=== PATIENT | female | born 2000 | race Caucasian/White ===

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

== ENCOUNTER 2023-07-29 17:53 | Emergency (ER) | payer OTHER ==
[~2023-07-29] VITALS: Ht 167.6 cm; Wt 72.6 kg
[2023-07-29 18:05] VITALS: BP 131/87
[2023-07-29] MEDS ORDERED: Vibramycin100 MG PO (18:09)
== END 2023-07-29 18:35 | disposition home or self-care (01) ==
LOC: ER 17:53
DX: A56.8 Sexually transmitted chlamydial infection of other sites (principal); F17.200 Nicotine dependence, unspecified, uncomplicated; Z91.048 Other nonmedicinal substance allergy status
CPT/HCPCS: 96372; 99283-25; A9270; J0696

== ENCOUNTER 2023-08-31 06:36 | Emergency (ER) | payer OTHER ==
[~2023-08-31] VITALS: Ht 165.1 cm; Wt 72.6 kg
[~2023-08-31 06:36] MED LIST: Vibramycin100 MG PO
[2023-08-31 06:44] VITALS: BP 126/85
[2023-08-31] MEDS ORDERED: DOXY100 PO (08:02)
== END 2023-08-31 08:17 ==
LOC: ER 06:36
DX: Z20.2 Contact with and (suspected) exposure to infections with a predominantly sexual mode of transmission (principal); N89.8 Other specified noninflammatory disorders of vagina; N94.10 Unspecified dyspareunia; F17.210 Nicotine dependence, cigarettes, uncomplicated; Z91.09 Other allergy status, other than to drugs and biological substances
CPT/HCPCS: 81025; 96372; 99283-25; A9270; J0696

== ENCOUNTER 2024-06-15 13:54 | Emergency (ER) | payer OTHER ==
[~2024-06-15] VITALS: Ht 165.1 cm; Wt 63.5 kg
[~2024-06-15 13:54] MED LIST changes: +DOXY100 PO
[2024-06-15] MEDS ORDERED: Lidocaine 2% Viscous Soln 15 ML UDC MT ONE (17:10)
[2024-06-15] MEDS ORDERED: Acetaminophen 500 MG Tab PO ONE (17:10)
[2024-06-15 19:30] VITALS: BP 113/71
== END 2024-06-15 19:39 | disposition home or self-care (01) ==
LOC: ER 13:54
DX: S01.112A Laceration without foreign body of left eyelid and periocular area, initial encounter (principal); V89.2XXA Person injured in unspecified motor-vehicle accident, traffic, initial encounter; Y92.828 Other wilderness area as the place of occurrence of the external cause; F17.200 Nicotine dependence, unspecified, uncomplicated; Z88.8 Allergy status to other drugs, medicaments and biological substances
CPT/HCPCS: 12011; 70450; 99284-25; A9270